=== PATIENT | male | born 1990 | race Caucasian/White ===

== ENCOUNTER → 2023-08-01 07:39 | Outpatient (REF) | payer BC, SELFPAY | LOC: EMG 07:39 | PROVIDERS: ATTENDING PHYSICIAN Psychiatry & Neurology Neurology; FAMILY PHYSICIAN Family Medicine | DX: R25.3 Fasciculation (principal); R20.0 Anesthesia of skin | CPT/HCPCS: 95886; 95913 ==

== ENCOUNTER → 2023-09-25 19:14 | Outpatient (REF) | payer BC, SELFPAY | LOC: MRI 19:14 | PROVIDERS: ATTENDING PHYSICIAN Psychiatry & Neurology Neurology; FAMILY PHYSICIAN Family Medicine | DX: R29.2 Abnormal reflex (principal); G51.4 Facial myokymia | CPT/HCPCS: 70553; A9575 ==

== ENCOUNTER → 2023-09-26 19:45 | Outpatient (REF) | payer BC, SELFPAY | LOC: MRI 19:45 | PROVIDERS: ATTENDING PHYSICIAN Psychiatry & Neurology Neurology; FAMILY PHYSICIAN Family Medicine | DX: R25.3 Fasciculation (principal); R29.2 Abnormal reflex | CPT/HCPCS: 72158; 72197; A9575 ==